=== PATIENT | female | born 1990 | race Hispanic/Latino ===

== ENCOUNTER 2024-11-19 06:54 | Emergency (ER) | payer OTHER ==
[~2024-11-19] VITALS: Ht 154.9 cm; Wt 74.7 kg
[2024-11-19 07:59] LABS: BASO # 0.1 10^3/uL (0.0-0.2); BASO % 0.4 % (0.0-1.0); EOS # 0.0 10^3/uL (0.0-0.5); EOS % 0.1 % (0.0-3.0); LYMPH # 1.0 10^3/uL (1.5-5.0); LYMPH % 6.4 % (24.0-44.0); MONO # 0.7 10^3/uL (0.0-0.8); MONO % 4.1 % (2.0-8.0); NEUTROPHILS # 14.2 10^3/uL (1.5-8.5); NEUTROPHILS % 88.7 % (36.0-66.0)
[2024-11-19 08:33] LABS: CALCIUM LEVEL 9.1 MG/DL (8.5-10.1); CARBON DIOXIDE LEVEL 23 MMOL/L (20-31); CHLORIDE LEVEL 103 MMOL/L (98-107); CREATININE FOR GFR 0.76 MG/DL (0.55-1.30); GLOMERULAR FILTRATION RATE > 90.0 (>60); POTASSIUM SERUM 3.8 MMOL/L (3.5-5.1); SODIUM LEVEL 139 MMOL/L (136-145)
[2024-11-19 08:38] LABS: PLATELET COUNT, AUTOMATED 205 10^3/uL (150-450)
[2024-11-19] MEDS: ACETAMINOPHEN 325 MG TAB PO ONE (08:44)
[2024-11-19] MEDS: ONDANSETRON 4MG ORAL DISINTEGRATING TAB PO ONE (08:45)
[2024-11-19 08:47] LABS: KETONE, URINE AUTO RFX NEGATIVE (NEGATIVE); LEUKOCYTE ESTERASE UR AUTO RFX NEGATIVE (NEGATIVE); MUCUS, URINE RFX SMALL (NEGATIVE); NITRITE, URINE AUTO RFX NEGATIVE (NEGATIVE); RBC, URINE AUTO RFX 0 /HPF (0-3); SQUAM EPITHELIAL CELL UR AURFX 0 /HPF (0-6); WBC, URINE AUTO RFX 0 /HPF (0-3)
[2024-11-19 09:30] VITALS: O2SAT 97
[2024-11-19 09:45] VITALS: BP 110/55
[2024-11-19] MEDS ORDERED: AMOX500C PO (09:49)
[2024-11-19] MEDS: AMOXICILLIN 500 MG CAP PO ONE (09:50)
[2024-11-19 09:51] VITALS: TEMP 100
== END 2024-11-19 10:07 | disposition home or self-care (01) ==
LOC: M ED 06:54
DX: J02.0 Streptococcal pharyngitis (principal); Z91.013 Allergy to seafood